=== PATIENT | female | born 1980 | race Caucasian/White ===

== ENCOUNTER 2016-11-20 00:49 | Observation (INO) | payer MEDICARE, MEDICAID ==
[~2016-11-20] VITALS: Ht 160 cm; Wt 143.0 kg
[~2016-11-20 00:49] MED LIST: CEFD300C3 PO; CITA20TA7 PO; EPIN0.3P2 IJ; LEVE500T6 PO; LISI10TA2 PO; MELO7.5T46 PO; NORG1TAB15 PO; PREG75CA PO; TRAM50TA2 PO; TRAZ100T92 PO; ZIPR20CA23 PO
--- OUTSIDE RECORDS SUMMARY | 2016-11-20 00:55 | XMS REPORT | Continuity of Care Document ---
Author Author [facility] Organization [facility] Address Unknown Phone Unavailable Care Team Providers Care Outside Sales Inspector Name Role Phone [facility] PCP Insurance Providers Payer Name Policy Number Subscriber Name Relationship s Medicare [id number] Bhavin Tucker 18 Self / Same As Patient [facility] [id number] Bhavin Tucker 18 Self / Same As Patient Advance Directives Directive Response Recorded Date/Time Advance Directives No 09/26/16 12:48am Resuscitation Status Full Code 09/26/16 12:48am Chief Complaint and Reason for Visit Chief Complaint -Female Reason for Visit Ovarian cyst [id number] Problems Active Problems Medical Problem Onset Date Status Ovarian cyst Unknown Acute Pelvic pain Unknown Acute UTI (urinary tract infection) Unknown Acute Medications Current Home Medications Medication Dose Units Route Directions Days/Qty Instructions Start Date Epinephrine 0.3 Mg/0.3 Ml 0.3 Mg Injection As Needed 09/26/16 Norgestimate-Ethinyl Estradiol 1 Each 1 Each Oral Daily 09/26/16 Lisinopril 10 Mg 10 Mg Oral Daily 09/26/16 Levetiracetam 500 Mg 500 Mg Oral Twice A Day 09/26/16 Ziprasidone Hcl 20 Mg 20 Mg Oral Daily 09/26/16 Meloxicam 7.5 Mg 7.5 Mg Oral Twice A Day 09/26/16 Citalopram Hydrobromide 20 Mg 20 Mg Oral Daily 09/26/16 Trazodone Hcl 100 Mg 300 Mg Oral Bedtime as needed for Insomnia Cefdinir (Omnicef) 300 Mg 300 Mg Oral Twice A Day 20 09/26/16 Tramadol Hcl 50 Mg 50-100 Mg Oral Every 6 Hours as needed for Pain 20 09/26/16 Social History Social History Problem Response Recorded Date/Time Alcohol Use Denies Use 09/26/2016 12:48am Recreational Drug Use No 09/26/2016 12:48am Recent Foreign Travel No 09/26/2016 12:19am Recent Infectious Disease Exposure No 09/26/2016 12:19am Smoking Status Former Smoker 09/26/2016 12:48am Recent Hopitalizations No 09/26/2016 12:48am Query Response Start Date Stop Date Smoking Status Former Smoker Hospital Discharge Instructions No hospital discharge instructions. Plan of Care Discharge Date 09/26/16 2:53am Disposition 01 HOME, SELF-CARE Condition at Discharge Stable Instructions/Education Provided Urinary Tract Infection, Adult (DC) Ovarian Cyst (DC) Prescriptions See Medication Section Referrals COURTNEY PERKINS - Primary Care Physician [facility] - Primary Care Physician Additional Instructions/Education All discharge instructions reviewed with patient and/or family. Voiced understanding. NEED TO SCHEDULE A FOLLOW UP APPOINTMENT WITH YOUR PCP UPON COMPLETION OF YOUR MEDICATIONS. WILL NEED A FOLLOW UP ULTRASOUND TO MAKE SURE YOUR OVARIAN CYST HAS RESOLVED. Functional Status No functional status results. Allergies, Adverse Reactions, Alerts Allergen Type Severity Reaction Status Last Updated Aspirin Adverse Reaction Unknown anaphylaxis Active 09/26/16 Immunizations No immunization records. Vital Signs Acute Vital Signs Vital Response Date/Time Temperature (Fahrenheit) 98.5 degrees F (97.6 - 99.5) 09/26/2016 12:19am Temperature (Calculated Celsius) 36.10580 degrees C (36.4 - 37.5) 09/26/2016 12:19am Temperature Source Tympanic 09/26/2016 12:19am Pulse Rate (adult) 76 bpm (60 - 90) 09/26/2016 12:19am Respiratory Rate 20 bpm (12 - 24) 09/26/2016 12:19am O2 Sat by Pulse Oximetry 98 % (88 - 100) 09/26/2016 12:19am Blood Pressure 180/92 mm Hg 09/26/2016 12:19am Blood Pressure Mean 121 mm Hg 09/26/2016 12:19am Pain Numeric Pain Scale 9 09/26/2016 2:38am Height (Feet) 5 feet 09/26/2016 12:19am Height (Inches) 3 inches 09/26/2016 12:19am Height (Calculated Centimeters) 160.280728 cm 09/26/2016 12:19am Weight (Pounds) 290 pounds 09/26/2016 12:19am Weight (Calculated Kilograms) 131.076820 kilograms 09/26/2016 12:19am Capillary Refill Capillary Refill Less Than 3 Seconds 09/26/2016 12:19am Height 5 ft 3 in Weight 290 lb Body Mass Index 51.4 kg/m^2 Results Laboratory Results Test Name Result Units Flags Reference Collection Date/Time Result Date/ Time Comments Urine Color RED * 09/26/2016 12:30am 09/26/2016 12:56am Urine Clarity SLIGHTLY CLOUDY 09/26/2016 12:30am 09/26/2016 12: 56am Urine pH 5 5-9 09/26/2016 12:30am 09/26/2016 12:56am Urine Specific [place] 1.025 * 1.016-1.022 09/26/2016 12:30am 2015 12:56am Urine Protein 3+ * NEGATIVE 09/26/2016 12:30am 09/26/2016 12:56am Urine Glucose (UA) NEGATIVE NEGATIVE 09/26/2016 12:30am 09/26/2016 12 :56am Urine RBC (Auto) 5+ * NEGATIVE 09/26/2016 12:30am 09/26/2016 12:56am Urine Ketones 1+ * NEGATIVE 09/26/2016 12:30am 09/26/2016 12:56am Urine Nitrite NEGATIVE NEGATIVE 09/26/2016 12:30am 09/26/2016 12: 56am Urine Bilirubin NEGATIVE NEGATIVE 09/26/2016 12:30am 09/26/2016 12: 56am Urine Urobilinogen 1 MG/DL NORMAL 09/26/2016 12:30am 09/26/2016 12: 56am Urine Leukocyte Esterase 2+ * NEGATIVE 09/26/2016 12:30am 09/26/2016 12 :56am Urine RBC TNTC /HPF * 09/26/2016 12:30am 09/26/2016 12:56am Urine WBC 5-10 /HPF * 09/26/2016 12:30am 09/26/2016 12:56am Urine Bacteria FEW /HPF * 09/26/2016 12:30am 09/26/2016 12:56am Urine Squamous Epithelial Cells 2-5 /HPF 09/26/2016 12:30am 2015 12:56am Urine Crystals NONE /LPF 09/26/2016 12:30am 09/26/2016 12:56am Urine Casts NONE /LPF 09/26/2016 12:30am 09/26/2016 12:56am Urine Mucus NEGATIVE /LPF 09/26/2016 12:30am 09/26/2016 12:56am Urine Culture Indicated YES 09/26/2016 12:30am 09/26/2016 12:56am Procedures No known history of procedures. Encounters Encounter Location Arrival/Admit Date Discharge/Depart Date Attending Provider Departed Emergency Room [facility] 09/26/16 12:15am 2:53am VALENTINA WILLSON DO Recent Diagnosis
[2016-11-20] MEDS ORDERED: NS IV 1000 ML 1,000 ML IV ONE (01:06)
--- NOTE | 2016-11-20 01:11 | ED Neurological Problem ---
General Chief Complaint: Neurological Problems Stated Complaint: SEIZURE Source: patient Exam Limitations: no limitations History of Present Illness Time seen by provider: 01:00 Initial Comments Here by EMS with report of 8 seizures at home per family member. She has not taken her night meds it tonight. Apparently suffering from some sort of upper respiratory infection. Patient is not answering questions currently. She is on Keppra. EMS witnessed a seizure in route and did give 5 mg of Valium IV. Patient postictal or somnolent on arrival here. Does occasionally moan. No report of trauma. Timing/Duration: 1 hour, episodic Severity: moderate Associated Symptoms: seizures Allergies and Home Medications Allergies Coded Allergies: aspirin (Unverified Adverse Reaction, Unknown, anaphylaxis, 09/26/16) Home Medications Citalopram Hydrobromide 20 Mg Tablet 20 MG PO DAILY (Reported) Epinephrine 0.3 Mg/0.3 Ml Auto.injct 0.3 MG IJ PRN (Reported) Levetiracetam 500 Mg Tablet 500 MG PO BID (Reported) Lisinopril 10 Mg Tablet 10 MG PO DAILY (Reported) Meloxicam 7.5 Mg Tablet 7.5 MG PO BID (Reported) Norgestimate-Ethinyl Estradiol 1 Each Tablet 1 EACH PO DAILY (Reported) Pregabalin 75 Mg Capsule 75 MG PO BID (Reported) Tramadol HCl 50 Mg Tablet #20 50-100 MG PO Q6H PRN PRN PAIN Prescribed by: VALENTINA WILLSON on 09/26/16 0238 Trazodone HCl 100 Mg Tablet 300 MG PO HS PRN PRN INSOMNIA (Reported) Ziprasidone HCl 20 Mg Capsule 20 MG PO DAILY (Reported) Constitutional: see HPINo chills, No fever Psychiatric/Neurological: See HPI Tonic Clonic Seizures Other Unable to complete review of systems due to altered mental status Past Skebioq-Zmvsxq-Uilwcl Hx Patient Social History Smoking Status: Unknown if Ever Smoked Recent Foreign Travel: No Contact w/Someone Who Travel: No Recent Hopitalizations: No Surgeries HX Surgeries: Yes ("rods in back") Surgeries: Orthopedic, Tubal Ligation Respiratory Hx Respiratory Disorders: No Cardiovascular Hx Cardiac Disorders: Yes Cardiac Disorders: Heart Murmur, Hypertension Neurological Hx Neurological Disorders: Yes Neurological Disorders: Seizure Disorder 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 Unable to obtain from patient due to altered mental status. Physical Exam Vital Signs Vital Sign - Last 12Hours 11/20/16 00:53 Temp 98.2 Pulse 93 Resp 18 B/P 147/96 Pulse Ox 100 O2 Delivery Room Air Capillary Refill : General Appearance: WD/WN no apparent distress HEENT: PERRL/EOMI pharynx normal Neck: full range of motion supple Respiratory: lungs clear normal breath sounds Cardiovascular: regular rate, rhythm no murmur Peripheral Pulses: 2+ Dorsalis Pedis (R), 2+ Left Dors-Pedis (L), 2+ Radial Pulses (R), 2+ Radial Pulses (L) Gastrointestinal: non tender soft Back: normal inspection no CVA tenderness Extremities: non-tender no pedal edema Neurologic/Psychiatric: disoriented x 3 other (moaning on exam. Otherwise unresponsive/postictal. O2 sat 95 percent on room air. Protecting airway well. ) Skin: normal color warm/dry Progress/Results/Core Measures Results/Orders Lab Results Laboratory Tests Test 11/20/16 01:02 Range/Units Alanine Aminotransferase (ALT/SGPT) 11 0-55 U/L Albumin 3.7 3.2-4.5 G/DL Alkaline Phosphatase 73 40-136 U/L Anion Gap 13 5-14 MMOL/L Aspartate Amino Transf (AST/SGOT) 9 5-34 U/L BUN/Creatinine Ratio 18 Basophils # (Auto) 0.0 0.0-0.1 10^3/uL Basophils (%) (Auto) 0 0-10 % Blood Urea Nitrogen 12 7-18 MG/DL Calcium Level 8.7 8.5-10.1 MG/DL Carbon Dioxide Level 19 L 21-32 MMOL/L Chloride Level 104 98-107 MMOL/L Creatinine 0.67 0.60-1.30 MG/DL Eosinophils # (Auto) 0.3 0.0-0.3 10^3/uL Eosinophils (%) (Auto) 4 0-10 % Estimat Glomerular Filtration Rate > 60 Glucose Level 114 H 70-105 MG/DL Hematocrit 35 35-52 % Hemoglobin 11.7 11.5-16.0 G/DL Lymphocytes # (Auto) 2.6 1.0-4.0 X 10^3 Lymphocytes (%) (Auto) 35 12-44 % Magnesium Level 1.8 1.8-2.4 MG/DL Mean Corpuscular Hemoglobin 27 25-34 PG Mean Corpuscular Hemoglobin Concent 33 32-36 G/DL Mean Corpuscular Volume 81 80-99 FL Mean Platelet Volume 9.6 7.4-10.4 FL Monocytes # (Auto) 0.7 0.0-1.0 X 10^3 Monocytes (%) (Auto) 10 0-12 % Neutrophils # (Auto) 3.8 1.8-7.8 X 10^3 Neutrophils (%) (Auto) 52 42-75 % Platelet Count 371 130-400 10^3/uL Potassium Level 3.8 3.6-5.0 MMOL/L Red Blood Count 4.32 L 4.35-5.85 10^6/uL Red Cell Distribution Width 13.9 10.0-14.5 % Serum Test, Qualitative NEGATIVE NEGATIVE Sodium Level 136 135-145 MMOL/L Total Bilirubin 0.1 0.1-1.0 MG/DL Total Protein 6.5 6.4-8.2 G/DL White Blood Count 7.4 4.3-11.0 10^3/uL My Orders Orders-GIRMA MAGALLON MD Cbc With Automated Diff (11/20/16 01:06) Comprehensive Metabolic Panel (11/20/16 01:06) Drug Screen Stat (Urine) (11/20/16 01:06) Hcg,Qualitative Serum (11/20/16 01:06) Magnesium (11/20/16 01:06) Ua Culture If Indicated (11/20/16 01:06) Ekg Tracing (11/20/16 01:06) Monitor-Rhythm Ecg Trace Only (11/20/16 01:06) Ns Iv 1000 Ml (Sodium Chloride 0.9%) (11/20/16 01:06) Levetiracetam Injection (Keppra Injectio (11/20/16 01:13) Saline Lock/Iv-Start (11/20/16 01:33) Medications Given in ED Current Medications Medications Dose Ordered Sig/Felicia Route Start Time Stop Time Status Last Admin Dose Admin Sodium Chloride 1,000 ml @ 0 mls/hr Q0M ONCE IV 11/20/16 01:06 11/20/16 01:09 DC 11/20/16 01:27 999 MLS/HR Vital Signs/I&O Vital Sign - Last 12Hours 11/20/16 00:53 Temp 98.2 Pulse 93 Resp 18 B/P 147/96 Pulse Ox 100 O2 Delivery Room Air Progress Note : Progress Note Seen and evaluated on arrival by EMS. Patient somnolent on arrival after administration of 5 mg of Ativan by EMS. Monitor patient. Patient's boyfriend came into the room and then a few minutes later patient had jerking movements of her body. This lasted about 10 seconds and then stopped. Patient reportedly did not have her Keppra tonight. Keppra 1000 mg loading dose given. Monitor patient. 0200: Patient will better now and is able to talk. Does admit that she may have not taken all of her seizure medicines. Keppra is currently infusing. Patient uncomfortable due to multiple seizures tonight. I did discuss the case with Dr. Tammy Stevenson. She accepts patient for admission , observation status. Patient agrees to plan and is appreciative of admission. ECG Initial ECG Impression Date: Nov 20, 2016 Initial ECG Impression Time: 01:04 Initial ECG Rate: 90 Initial ECG Rhythm: Normal Sinus Initial ECG Comparisson: Unchanged Comment Sinus rhythm with left atrial abnormality. No evidence of ST elevation ID. Similar to previous of 10/27/16. Interpreted by me. Departure Communication Time/Spoke to Admitting Phy: 02:00 Impression Impression: Primary Impression: Epileptic seizures Qualified Code: G40.901 - Epilepsy, unspecified, not intractable, with status epilepticus Disposition: ADMITTED INPATIENT Condition: Stable Decision to Admit Reason: Admit from ER (General) Decision to Admit/Date: Nov 20, 2016 Time/Decision to Admit Time: 02:00 Departure-Patient Inst. Referrals: [facility] (PCP/Family) Primary Care Physician GIRMA MAGALLON MD Nov 20, 2016 01:11
[2016-11-20 01:12] LABS: BASOPHILS % (AUTO) 0 % (0-10); EOSINOPHILS # (AUTO) 0.3 10^3/uL (0.0-0.3); EOSINOPHILS % (AUTO) 4 % (0-10); LYMPHOCYTES # (AUTO) 2.6 X 10^3 (1.0-4.0); LYMPHOCYTES % (AUTO) 35 % (12-44); MEAN CORPUSCULAR HEMOGLOBIN 27 PG (25-34); MEAN CORPUSCULAR HGB CONC 33 G/DL (32-36); MEAN CORPUSCULAR VOLUME 81 FL (80-99); MEAN PLATELET VOLUME 9.6 FL (7.4-10.4); MONOCYTES # (AUTO) 0.7 X 10^3 (0.0-1.0); MONOCYTES % (AUTO) 10 % (0-12); NEUTROPHILS # (AUTO) 3.8 X 10^3 (1.8-7.8); NEUTROPHILS % (AUTO) 52 % (42-75); PLATELET COUNT 371 10^3/uL (130-400); RED BLOOD COUNT 4.32 10^6/uL (4.35-5.85); RED CELL DISTRIBUTION WIDTH 13.9 % (10.0-14.5); WHITE BLOOD COUNT 7.4 10^3/uL (4.3-11.0)
[2016-11-20] MEDS ORDERED: LEVETIRACETAM INJECTION 1,000 MG in NORMAL SALINE (BAXTER MINI) 100 ML IV STA (01:13)
[2016-11-20 01:28] LABS: ALANINE AMINOTRANSFERASE 11 U/L (0-55); ALBUMIN 3.7 G/DL (3.2-4.5); ANION GAP 13 MMOL/L (5-14); ASPARTATE AMINO TRANSFERASE 9 U/L (5-34); BILIRUBIN,TOTAL 0.1 MG/DL (0.1-1.0); BLOOD UREA NITROGEN 12 MG/DL (7-18); BUN/CREATININE RATIO 18; CALCIUM 8.7 MG/DL (8.5-10.1); CARBON DIOXIDE 19 MMOL/L (21-32); CHLORIDE 104 MMOL/L (98-107); CREATININE SERUM 0.67 MG/DL (0.60-1.30); GFR ESTIMATED > 60; GLUCOSE 114 MG/DL (70-105); MAGNESIUM 1.8 MG/DL (1.8-2.4); POTASSIUM 3.8 MMOL/L (3.6-5.0); SODIUM 136 MMOL/L (135-145); TOTAL PROTEIN 6.5 G/DL (6.4-8.2)
[2016-11-20 03:00] VITALS: BP 154/85
[2016-11-20] MEDS ORDERED: NS IV 1000 ML 1,000 ML ONE (03:18)
[2016-11-20] MEDS ORDERED: IBUPROFEN 800 MG (MOTRIN) TAB PO ONE (03:18)
[2016-11-20] MEDS ORDERED: IBUPROFEN 800 MG (MOTRIN) TAB PO PRN (03:30)
[2016-11-20] MEDS ORDERED: LORazepam INJ 2 MG/ML (ATIVAN) VIAL IV PRN (03:30)
[2016-11-20] MEDS ORDERED: CATHETER FLUSH 10 ML SYR IV PRN (03:30)
[2016-11-20] MEDS: NS IV 1000 ML 1,000 ML IV SCH ×2 (03:54→11:30)
[2016-11-20 04:00] VITALS: BP 135/65
[2016-11-20] MEDS ORDERED: CATHETER FLUSH 10 ML SYR IV SCH (06:00)
[2016-11-20 08:00] VITALS: BP 148/83
[2016-11-20] MEDS ORDERED: ZIPR20CA26 PO (08:00)
[2016-11-20] MEDS ORDERED: TRAM50TA2 PO (08:00)
[2016-11-20] MEDS ORDERED: ONDA4TAB11 PO (08:00)
[2016-11-20] MEDS ORDERED: FLU TRIvalent (5 YOA+) 2016-17 (AFLURIA) 0.5 ML IM ONE (08:45)
[2016-11-20] MEDS ORDERED: LEVETIRACETAM 500 MG (KEPPRA) TAB PO SCH (09:00)
--- NOTE | 2016-11-20 11:18 | Discharge Instructions ---
Discharge [facility] Discharge Medications New, Converted or Re-Newed RX: Other Continued Medications: Citalopram Hydrobromide (Citalopram HBr) 20 Mg Tablet 20 MG PO DAILY TAB Epinephrine (Epipen) 0.3 Mg/0.3 Ml Auto.injct 0.3 MG IJ UD PRN ALLERGIC REACTION EA Levetiracetam (Levetiracetam) 500 Mg Tablet 500 MG PO BID TAB Lisinopril (Lisinopril) 10 Mg Tablet 10 MG PO HS TAB Meloxicam (Meloxicam) 7.5 Mg Tablet 7.5 MG PO BID TAB Norgestimate-Ethinyl Estradiol (Tri-Sprintec Tablet) 1 Each Tablet 1 TAB PO DAILY TAB Ondansetron (Ondansetron Odt) 4 Mg Tab.rapdis 4 MG PO TID PRN NAUSEA TAB Tramadol HCl (Tramadol HCl) 50 Mg Tablet 50-100 MG PO Q6H PRN PAIN TAB Trazodone HCl (Trazodone HCl) 100 Mg Tablet 300 MG PO HS TAKES 3 (100MG) TABLETS PRN INSOMNIA TAB Ziprasidone HCl (Ziprasidone HCl) 20 Mg Capsule 20 MG PO HS CAP Patient Instructions Goal/Follow Up Appt: Mae Childers APRN Nov 24 at 4:20 (as previously scheduled) Patient Instructions: Please take all medications as prescribed. Call the clinic if you need refills. [facility] to [facility] For: increased seizures. Activity & Diet Discharge Diet: ADA Diet Activity as Tolerated: Yes Orders-Post D/C & Referrals Pneu Vac Indicated: Yes Copy Copies To 1: MELANIE VITAL APRN, MD Nov 20, 2016 11:18 am
--- NOTE | 2016-11-20 11:20 | Short Stay Summary ---
HPI History of Present Illness: Bhavin presented to clinic last night with complaints of increasing seizures. Admits that she has not been taking her medication as prescribed. States she just forgets. DOesn't have seziures when she takes her meds. Usually sees Mae. No trauma. Had a recent URI but no fevers. No injury when she had the seizures. Source: patient Exam Limitations: no limitations Date seen by provider: Nov 20, 2016 Attending Physician Melanie Stevenson MD [place]CP [facility] Date of Admission Nov 20, 2016 at 2:00 am Home Medications Home Medications Reviewed patient Home Medication Reconciliation Form Allergies Coded Allergies: aspirin (Unverified Adverse Reaction, Unknown, anaphylaxis, 09/26/16) WEP-Bvliyr-Qkgmso Hx Patient Social History Alcohol Use: Denies Use Recreational Drug Use: No Smoking Status: Former Smoker Type Used: Cigarettes Recent Foreign Travel: No Contact w/other who traveled: No Recent Hopitalizations: No Recent Infectious Disease Expo: No Physical Abuse Screen: No Sexual Abuse: No Review of Systems ([facility]) Constitutional: no symptoms reported All Other Systems Reviewed Negative Unless Noted: Yes (Negative excepted noted.) Physical Exam-([facility]) Physical Exam Vital Signs VS - Last 72 Hours, by Label 11/20/16 11/20/16 11/20/16 11/20/16 00:53 02:51 03:00 03:32 Temp 98.2 98.2 98.3 Pulse 93 83 87 90 Resp 18 18 18 B/P 147/96 154/85 Pulse Ox 100 100 98 O2 Delivery Room Air Room Air 11/20/16 11/20/16 11/20/16 11/20/16 04:00 07:00 08:00 08:17 Temp 98.4 98.8 Pulse 79 78 79 Resp 18 19 B/P 135/65 148/83 Pulse Ox 97 95 96 O2 Delivery Room Air Room Air Room Air Capillary Refill : Less Than 3 Seconds General Appearance: WD/WN no apparent distress obese HEENT: PERRL/EOMI normal ENT inspection pharynx normal Neck: non-tender full range of motion supple normal inspection Respiratory: lungs clear normal breath sounds no respiratory distress no accessory muscle use Cardiovascular: regular rate, rhythm no edema no gallop no JVD Gastrointestinal: normal bowel sounds non tender soft Extremities: normal range of motion non-tender normal inspection no pedal edema no calf tenderness normal capillary refill Neurologic/Psychiatric: branch mechanic II-XII nml as tested no motor/sensory deficits alert normal mood/affect oriented x 3 Skin: normal color warm/dry Short Stay Diagnosis Discharge Diagnosis-Short Stay Admission Diagnosis SEIZURE DISORDER NONCOMPLIANCE WITH MEDICATION REGIMEN Final Discharge Diagnosis same Conclusion Plan Bhavin's seizure improved once she received the Keppra IV. SHe was requesting discharge when I went to her room the following morning.We had a very stephane discussion regarding her nonadherence. She did tell me she had pillsa t home and could follow up with Mae as arranged. I do not believe a nueurology referral is indicated at present as she needs to take her prescriptions,a nd then we cadn decide from there what needs to happen. Clinical Quality Measures DVT/VTE Risk/Contraindication: Risk Factor Score Per Nursin RFS Level Per Nursing on Admit: 3=High Copy Copies To 1: MELANIE VITAL APRN, MD Nov 20, 2016 11:20
[2016-11-20 13:10] VITALS: BP 148/83
== END 2016-11-20 11:06 | disposition home or self-care (01) ==
LOC: EDUNIT# 00:49 → ER 00:51 → UNDOADMOB 02:00 → 4TH 02:00 → UNDODISOB 11:06
PROVIDERS: ADMIT Pediatrics; ATTEND Pediatrics
DX: G40.901 Epilepsy, unspecified, not intractable, with status epilepticus (principal)
CPT/HCPCS: 36415; 80053; 82962; 83735; 84703; 85025; 93005; 93041; 96361; 96365; G0378

== ENCOUNTER 2016-11-26 00:57 | Emergency (ER) | payer MEDICARE, MEDICAID ==
[~2016-11-26] VITALS: Ht 160 cm; Wt 154.3 kg
[~2016-11-26 00:57] MED LIST changes: +ONDA4TAB11 PO; +ZIPR20CA26 PO
--- OUTSIDE RECORDS SUMMARY | 2016-11-26 01:02 | XMS REPORT | Continuity of Care Document ---
Author Author [facility] Organization [facility] Address Unknown Phone Unavailable Care Team Providers Care Furniture Repair Technician Name Role Phone [facility] PCP Insurance Providers Payer Name Policy Number Subscriber Name Relationship s Medicare [id number] Bhavin Tucker 18 Self / Same As Patient [facility] [id number] Bhavin Tucker 18 Self / Same As Patient Advance Directives Directive Response Recorded Date/Time Advance Directives No 09/26/16 12:48am Resuscitation Status Full Code 09/26/16 12:48am Chief Complaint and Reason for Visit Chief Complaint -Female Reason for Visit Ovarian cyst [id number] Problems Active Problems Medical Problem Onset Date [...] Referrals COURTNEY PERKINS - Primary Care Physician [facility] - Primary Care Physician Additional Instructions/Education [...] - 99.5) 09/26/2016 12:19am Temperature (Calculated Celsius) 36.90857 degrees C (36.4 - 37.5) 09/26/2016 12:19am [...] 3 inches 09/26/2016 12:19am Height (Calculated Centimeters) 160.213971 cm 09/26/2016 12:19am Weight (Pounds) 290 pounds 09/26/2016 12:19am Weight (Calculated Kilograms) 131.555360 kilograms 09/26/2016 12:19am Capillary Refill Capillary Refill [...] 5-9 09/26/2016 12:30am 09/26/2016 12:56am Urine Specific [place] 1.025 * 1.016-1.022 09/26/2016 12:30am 2015 12:56am [...] Date Attending Provider Departed Emergency Room [facility] 09/26/16 12:15am 2:53am VALENTINA WILLSON DO Recent Diagnosis
[2016-11-26 01:25] LABS: BASOPHILS % (AUTO) 0 % (0-10); EOSINOPHILS # (AUTO) 0.3 10^3/uL (0.0-0.3); EOSINOPHILS % (AUTO) 3 % (0-10); LYMPHOCYTES # (AUTO) 3.1 X 10^3 (1.0-4.0); LYMPHOCYTES % (AUTO) 31 % (12-44); MEAN CORPUSCULAR HEMOGLOBIN 27 PG (25-34); MEAN CORPUSCULAR HGB CONC 34 G/DL (32-36); MEAN CORPUSCULAR VOLUME 80 FL (80-99); MEAN PLATELET VOLUME 9.6 FL (7.4-10.4); MONOCYTES # (AUTO) 0.8 X 10^3 (0.0-1.0); MONOCYTES % (AUTO) 8 % (0-12); NEUTROPHILS # (AUTO) 5.8 X 10^3 (1.8-7.8); NEUTROPHILS % (AUTO) 58 % (42-75); PLATELET COUNT 417 10^3/uL (130-400); RED BLOOD COUNT 4.29 10^6/uL (4.35-5.85); RED CELL DISTRIBUTION WIDTH 13.7 % (10.0-14.5)
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
[2016-11-26 01:42] LABS: ALANINE AMINOTRANSFERASE 11 U/L (0-55); ALBUMIN 3.7 G/DL (3.2-4.5); ANION GAP 11 MMOL/L (5-14); ASPARTATE AMINO TRANSFERASE 8 U/L (5-34); BILIRUBIN,TOTAL 0.2 MG/DL (0.1-1.0); BLOOD UREA NITROGEN 10 MG/DL (7-18); BUN/CREATININE RATIO 16; CALCIUM 8.6 MG/DL (8.5-10.1); CARBON DIOXIDE 20 MMOL/L (21-32); CHLORIDE 105 MMOL/L (98-107); CREATINE KINASE 33 U/L (29-168); CREATININE SERUM 0.64 MG/DL (0.60-1.30); GFR ESTIMATED > 60; GLUCOSE 132 MG/DL (70-105); MAGNESIUM 1.9 MG/DL (1.8-2.4); POTASSIUM 3.9 MMOL/L (3.6-5.0); SODIUM 136 MMOL/L (135-145); TOTAL PROTEIN 6.6 G/DL (6.4-8.2)
[2016-11-26 01:43] LABS: BILIRUBIN,URINE NEGATIVE (NEGATIVE); KETONES,URINE NEGATIVE (NEGATIVE); LEUKOCYTE ESTERASE ,URINE 2+ (NEGATIVE); NITRITE,URINE NEGATIVE (NEGATIVE); PH,URINE 5 (5-9); PROTEIN,URINE NEGATIVE (NEGATIVE); UROBILINOGEN,URINE NORMAL (NORMAL)
[2016-11-26 02:11] LABS: ALCOHOL < 10 MG/DL (<10)
[2016-11-26] MEDS ORDERED: NITR-65 PO (02:13)
[2016-11-26 02:19] VITALS: BP 148/98
== END 2016-11-26 02:18 | disposition home or self-care (01) ==
LOC: EDUNIT# 00:57 → ER 00:58
DX: G40.909 Epilepsy, unspecified, not intractable, without status epilepticus (principal); N39.0 Urinary tract infection, site not specified; I10 Essential (primary) hypertension; Z79.899 Other long term (current) drug therapy
CPT/HCPCS: 36415; 80053; 80306; 80320; 81000; 82550; 83735; 84703; 85025; 87088; 87186; 99283

== ENCOUNTER 2016-12-03 02:07 | Emergency (ER) | payer MEDICARE, MEDICAID ==
[~2016-12-03] VITALS: Ht 160 cm; Wt 154.3 kg
[~2016-12-03 02:07] MED LIST changes: +NITR-65 PO
--- OUTSIDE RECORDS SUMMARY | 2016-12-03 02:15 | XMS REPORT | Continuity of Care Document ---
Author Author [facility] Organization 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 PCP Insurance Providers Payer Name Policy Number Subscriber Name Relationship s Medicare [id number] Bhavin Tucker 18 Self / Same As Patient [facility] [id number] Bhavin Tucker 18 Self / Same As Patient Advance Directives Directive Response Recorded Date/Time Advance Directives No 09/26/16 12:48am Resuscitation Status Full Code 09/26/16 12:48am Chief Complaint and Reason for Visit Chief Complaint -Female Reason for Visit Ovarian cyst [id number] Problems Active Problems Medical Problem Onset Date [...] Referrals COURTNEY PERKINS - Primary Care Physician [facility] - Primary Care Physician Additional Instructions/Education [...] - 99.5) 09/26/2016 12:19am Temperature (Calculated Celsius) 36.41628 degrees C (36.4 - 37.5) 09/26/2016 12:19am [...] 3 inches 09/26/2016 12:19am Height (Calculated Centimeters) 160.661360 cm 09/26/2016 12:19am Weight (Pounds) 290 pounds 09/26/2016 12:19am Weight (Calculated Kilograms) 131.955012 kilograms 09/26/2016 12:19am Capillary Refill Capillary Refill [...] 5-9 09/26/2016 12:30am 09/26/2016 12:56am Urine Specific [place] 1.025 * 1.016-1.022 09/26/2016 12:30am 2015 12:56am [...]
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
[2016-12-03 04:54] VITALS: BP 142/94
== END 2016-12-03 04:54 | disposition home or self-care (01) ==
LOC: EDUNIT# 02:07 → ER 02:10
DX: S29.002A Unspecified injury of muscle and tendon of back wall of thorax, initial encounter (principal); I10 Essential (primary) hypertension; G40.909 Epilepsy, unspecified, not intractable, without status epilepticus; E66.01 Morbid (severe) obesity due to excess calories; Z79.899 Other long term (current) drug therapy; W01.0XXA Fall on same level from slipping, tripping and stumbling without subsequent striking against object, initial encounter; Y92.014 Private driveway to single-family (private) house as the place of occurrence of the external cause; Y99.8 Other external cause status
CPT/HCPCS: 99282

== ENCOUNTER → 2016-12-05 | Outpatient (CLI) | payer MEDICARE, MEDICAID ==
[~2016-12-05] MED LIST changes: +LEVE10006 PO
--- OUTSIDE RECORDS SUMMARY | 2016-12-05 11:07 | XMS REPORT | Continuity of Care Document ---
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 Role Phone [facility] PCP Insurance Providers Payer Name Policy Number Subscriber Name Relationship s Medicare [id number] Bhavin Tucker 18 Self / Same As Patient [facility] [id number] Bhavin Tucker 18 Self / Same As Patient Advance Directives Directive Response Recorded Date/Time Advance Directives No 09/26/16 12:48am Resuscitation Status Full Code 09/26/16 12:48am Chief Complaint and Reason for Visit Chief Complaint -Female Reason for Visit Ovarian cyst [id number] Problems Active Problems Medical Problem Onset Date [...] Referrals COURTNEY PERKINS - Primary Care Physician [facility] - Primary Care Physician Additional Instructions/Education [...] - 99.5) 09/26/2016 12:19am Temperature (Calculated Celsius) 36.44096 degrees C (36.4 - 37.5) 09/26/2016 12:19am [...] 3 inches 09/26/2016 12:19am Height (Calculated Centimeters) 160.617998 cm 09/26/2016 12:19am Weight (Pounds) 290 pounds 09/26/2016 12:19am Weight (Calculated Kilograms) 131.297532 kilograms 09/26/2016 12:19am Capillary Refill Capillary Refill [...] 5-9 09/26/2016 12:30am 09/26/2016 12:56am Urine Specific [place] 1.025 * 1.016-1.022 09/26/2016 12:30am 2015 12:56am [...] Date Attending Provider Departed Emergency Room [facility] 09/26/16 12:15am 2:53am VALENTINA WILLSON DO Recent Diagnosis
--- NOTE | 2016-12-05 12:52 | Diagnostic Imaging Report ---
PROCEDURE: MR imaging of the brain without contrast. TECHNIQUE: Multiplanar, multisequence MR imaging of the brain was performed without contrast. INDICATION: Seizure disorder with frequent falls and lower extremity paresthesia. FINDINGS: Ventricles and sulci are within normal limits for size. There is no evidence of cortical thickening or dysplasia. There is no evidence of amezquita matter heterotopia. No abnormal mass effect or shift of midline structures is identified. There is no restricted diffusion. Temporal lobes in general and hippocampal formations, specifically are symmetric, bilaterally without evidence of abnormal signal. No hemorrhage is detected. There are mildly prominent deep cervical lymph nodes, bilaterally which are symmetric. IMPRESSION: Unremarkable MRI of the brain. Dictated by: Dictated on workstation # [id number]
== END ==
LOC: RAD 11:02
PROVIDERS: ATTEND Nurse Practitioner Community Health
DX: R20.8 Other disturbances of skin sensation (principal); R53.1 Weakness; R29.6 Repeated falls; G40.909 Epilepsy, unspecified, not intractable, without status epilepticus; Z87.820 Personal history of traumatic brain injury
CPT/HCPCS: 70551

== ENCOUNTER → 2017-02-06 | Outpatient (CLI) | payer MEDICARE, MEDICAID ==
--- NOTE | 2017-02-06 17:04 | Diagnostic Imaging Report ---
PROCEDURE: MRI right joint upper extremity without contrast. TECHNIQUE: Multiplanar, multisequence MR imaging of the right shoulder was performed without contrast. COMPARISON: None available. INDICATION: Right shoulder pain for 9 months. FINDINGS: Rotator cuff: No high-grade partial or full-thickness rotator cuff tear. Low-grade partial-thickness bursal-sided fraying of the anterior insertional fibers of the supraspinatus, with underlying tendinopathy. No rotator cuff muscle atrophy. Glenoid labrum: By non-arthrogram imaging, the glenoid labrum is normal. Long head of biceps: The long head of the biceps is normal in morphology and position. No tear or significant tendinopathy. Bones and cartilage: No fracture or Hill-Sachs deformity of the humeral head. No high-grade chondromalacia in the glenohumeral joint. Mild degenerative capsular hypertrophy of the acromioclavicular joint without associated synovitis. Soft tissues: No glenohumeral joint effusion. No MRI findings to suggest adhesive capsulitis. Trace fluid distends the subacromial and subdeltoid bursa, indicative of bursitis. IMPRESSION: 1. Low-grade partial-thickness tearing of the bursal fibers of the anteriormost insertional fibers of the supraspinatus. 2. There is associated mild subacromial/subdeltoid bursitis. Dictated by: Dictated on workstation # [id number]
== END ==
LOC: RAD 16:08
PROVIDERS: ATTEND Family Medicine
DX: M75.101 Unspecified rotator cuff tear or rupture of right shoulder, not specified as traumatic (principal)
CPT/HCPCS: 73221

== ENCOUNTER 2017-02-12 13:06 | Outpatient (RCR) | payer MEDICARE, MEDICAID ==
--- OUTSIDE RECORDS SUMMARY | 2017-01-13 14:22 | XMS REPORT | Continuity of Care Document ---
Author Author [facility] Organization [facility] Address Unknown Phone Unavailable Care Team Providers Care Technical Service Engineer Name Role Phone [facility] PCP Insurance Providers Payer Name Policy Number Subscriber Name Relationship s Medicare [id number] Bhavin Tucker 18 Self / Same As Patient [facility] [id number] Bhavin Tucker 18 Self / Same As Patient Advance Directives Directive Response Recorded Date/Time Advance Directives No 09/26/16 12:48am Resuscitation Status Full Code 09/26/16 12:48am Chief Complaint and Reason for Visit Chief Complaint -Female Reason for Visit Ovarian cyst [id number] Problems Active Problems Medical Problem Onset Date [...] Referrals COURTNEY PERKINS - Primary Care Physician [facility] - Primary Care Physician Additional Instructions/Education [...] - 99.5) 09/26/2016 12:19am Temperature (Calculated Celsius) 36.92864 degrees C (36.4 - 37.5) 09/26/2016 12:19am [...] 3 inches 09/26/2016 12:19am Height (Calculated Centimeters) 160.469078 cm 09/26/2016 12:19am Weight (Pounds) 290 pounds 09/26/2016 12:19am Weight (Calculated Kilograms) 131.672002 kilograms 09/26/2016 12:19am Capillary Refill Capillary Refill [...] 5-9 09/26/2016 12:30am 09/26/2016 12:56am Urine Specific [place] 1.025 * 1.016-1.022 09/26/2016 12:30am 2015 12:56am [...] Date Attending Provider Departed Emergency Room [facility] 09/26/16 12:15am 2:53am VALENTINA WILLSON DO Recent Diagnosis
[~2017-02-12 13:06] MED LIST changes: -LEVE10006 PO
== END 2017-02-12 13:37 | disposition home or self-care (01) ==
PROVIDERS: ATTEND Nurse Practitioner Community Health
DX: R53.1 Weakness (principal)

== ENCOUNTER 2017-02-26 14:04 | Outpatient (CLI) | payer MEDICARE, MEDICAID ==
[~2017-02-26] VITALS: Ht 160 cm; Wt 138.8 kg
[2017-02-26 14:13] VITALS: BP 124/79
[2017-02-26] MEDS ORDERED: LEVE10006 PO (14:20)
== END 2017-02-26 14:27 | disposition home or self-care (01) ==
LOC: PREOP 14:04
PROVIDERS: ATTEND Orthopaedic Surgery
DX: Z01.818 Encounter for other preprocedural examination (principal); Z11.2 Encounter for screening for other bacterial diseases; G56.01 Carpal tunnel syndrome, right upper limb
CPT/HCPCS: 87081

== ENCOUNTER → 2017-04-30 | Outpatient (CLI) | payer MEDICARE, MEDICAID ==
[~2017-04-30] MED LIST changes: +LEVE10006 PO
== END ==
DX: R10.2 Pelvic and perineal pain (principal); N92.0 Excessive and frequent menstruation with regular cycle

== ENCOUNTER 2017-05-15 05:53 | Emergency (ER) | payer MEDICARE, MEDICAID ==
[~2017-05-15] VITALS: Ht 160 cm; Wt 129.3 kg
[2017-05-15] MEDS ORDERED: TOPI100T PO (06:07)
[2017-05-15] MEDS ORDERED: ZIPR20CA23 PO (06:07)
[2017-05-15] MEDS ORDERED: diphenhydrAMINE 50 MG/ML INJ (BENADRYL) IM ONE (07:00)
[2017-05-15] MEDS ORDERED: methylPREDNISolone 125 MG (Solu-MEDROL) VIAL IM ONE (07:00)
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
[2017-05-15 07:16] VITALS: BP 139/91
== END 2017-05-15 07:13 | disposition home or self-care (01) ==
LOC: EDUNIT# 05:53 → ER 05:56
DX: L29.8 Other pruritus (principal); I10 Essential (primary) hypertension; G40.909 Epilepsy, unspecified, not intractable, without status epilepticus; K21.9 Gastro-esophageal reflux disease without esophagitis; M19.90 Unspecified osteoarthritis, unspecified site; E66.01 Morbid (severe) obesity due to excess calories; F31.9 Bipolar disorder, unspecified; F20.9 Schizophrenia, unspecified; F43.10 Post-traumatic stress disorder, unspecified; F90.9 Attention-deficit hyperactivity disorder, unspecified type; J45.909 Unspecified asthma, uncomplicated; F17.210 Nicotine dependence, cigarettes, uncomplicated; Z68.43 Body mass index [BMI] 50.0-59.9, adult
CPT/HCPCS: 96372; 99284

== ENCOUNTER 2017-05-17 16:31 | Emergency (ER) | payer MEDICARE, MEDICAID ==
[~2017-05-17] VITALS: Ht 160 cm; Wt 129.3 kg
[~2017-05-17 16:31] MED LIST changes: +TOPI100T PO; +ZIPR20CA24 PO; -ZIPR20CA26 PO
[2017-05-17] MEDS ORDERED: FAMOTIDINE 20MG/2ML IV (PEPCID) IV STA (17:53)
[2017-05-17] MEDS ORDERED: methylPREDNISolone 125 MG (Solu-MEDROL) VIAL IV STA (17:53)
[2017-05-17] MEDS ORDERED: NS IV 1000 ML 1,000 ML IV ONE (17:53)
[2017-05-17] MEDS ORDERED: diphenhydrAMINE 50 MG/ML INJ (BENADRYL) IV STA (17:53)
[2017-05-17] MEDS ORDERED: ONDANSETRON 4 MG/2 ML (SDV) Z0FRAN IVP ONE (18:00)
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
[2017-05-17] MEDS ORDERED: CLINDAMYCIN INJECTION 900 MG in NS (IVPB) 50 ML IV ONE (19:15)
[2017-05-17] MEDS ORDERED: DOXY100C2 PO (20:09)
[2017-05-17] MEDS ORDERED: SULF1TAB35 PO (20:09)
[2017-05-17] MEDS ORDERED: FAMO-119 PO (20:10)
[2017-05-17] MEDS ORDERED: PRD20T PO (20:10)
[2017-05-17] MEDS ORDERED: predniSONE 20 MG TAB PO ONE (20:30)
[2017-05-17 21:15] VITALS: BP 126/75
== END 2017-05-17 21:15 | disposition home or self-care (01) ==
LOC: EDUNIT# 16:31 → ER 16:32
DX: Z98.51 Tubal ligation status; F31.9 Bipolar disorder, unspecified; M19.90 Unspecified osteoarthritis, unspecified site; G40.909 Epilepsy, unspecified, not intractable, without status epilepticus; F20.9 Schizophrenia, unspecified; Z68.43 Body mass index [BMI] 50.0-59.9, adult; J45.909 Unspecified asthma, uncomplicated; F90.9 Attention-deficit hyperactivity disorder, unspecified type; F17.210 Nicotine dependence, cigarettes, uncomplicated; E66.01 Morbid (severe) obesity due to excess calories; K21.9 Gastro-esophageal reflux disease without esophagitis; I10 Essential (primary) hypertension; K52.9 Noninfective gastroenteritis and colitis, unspecified; T78.3XXA Angioneurotic edema, initial encounter
CPT/HCPCS: 96361; 96365; 96375

== ENCOUNTER → 2017-07-17 | Outpatient (CLI) | payer MEDICARE, MEDICAID ==
[~2017-07-17] MED LIST changes: +CITA20TA12 PO; +DOXY100C2 PO; +FAMO-119 PO; +PRD20T PO; +SULF1TAB35 PO; +TOPI200T25 PO
== END ==
LOC: RT 09:28
PROVIDERS: ATTEND Psychiatry & Neurology Neurology
DX: R56.9 Unspecified convulsions (principal)
CPT/HCPCS: 95816

== ENCOUNTER 2017-08-01 17:07 | Emergency (ER) | payer MEDICARE, MEDICAID ==
[~2017-08-01] VITALS: Ht 160 cm; Wt 127.0 kg
[~2017-08-01 17:07] MED LIST changes: -CITA20TA12 PO; -TOPI200T25 PO
[2017-08-01] MEDS ORDERED: TOPI200T25 PO (19:40)
[2017-08-01] MEDS ORDERED: CITA20TA12 PO (19:40)
--- NOTE | 2017-08-01 20:21 | Diagnostic Imaging Report ---
EXAMINATION: Left knee, 3 views. COMPARISON: None. HISTORY: 37-year-old female, left knee pain getting worse over the past few days. FINDINGS: There is no identified knee joint effusion. There is moderate to severe patellofemoral compartment joint space loss with small patellofemoral compartment osteophytes. The medial and lateral compartments are not significantly narrowed. There are small medial compartment osteophytes. There is no identified acute fracture. There is degenerative type enthesopathy at the insertion of the distal quadriceps tendon and origin and insertion of the patellar tendon. IMPRESSION: 1. No identified acute bony abnormality of the left knee. 2. Moderate to severe patellofemoral and mild medial compartment osteoarthritis. No knee joint effusion. Dictated by: Dictated on workstation # [id number]
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
[2017-08-01] MEDS ORDERED: PRD20T PO (20:47)
[2017-08-01] MEDS: RX-TRAMADOL 50 MG (ULTRAM) TAB PPK#4 PO STA ×2 (21:11→21:14)
[2017-08-01 21:31] VITALS: BP 166/96
== END 2017-08-01 21:31 | disposition home or self-care (01) ==
LOC: EDUNIT# 17:07 → ER 17:10
DX: M17.12 Unilateral primary osteoarthritis, left knee (principal); J45.909 Unspecified asthma, uncomplicated; I10 Essential (primary) hypertension; G40.909 Epilepsy, unspecified, not intractable, without status epilepticus; K21.9 Gastro-esophageal reflux disease without esophagitis; F90.9 Attention-deficit hyperactivity disorder, unspecified type; F43.10 Post-traumatic stress disorder, unspecified; F31.9 Bipolar disorder, unspecified; F20.9 Schizophrenia, unspecified; F42.9 Obsessive-compulsive disorder, unspecified; Z87.19 Personal history of other diseases of the digestive system; Z87.448 Personal history of other diseases of urinary system; Z87.891 Personal history of nicotine dependence; Z98.51 Tubal ligation status
CPT/HCPCS: 73562; 99283

== ENCOUNTER → 2017-10-09 | Outpatient (CLI) | payer MEDICARE, MEDICAID ==
[~2017-10-09] MED LIST changes: +CITA20TA12 PO; +TOPI200T25 PO
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
== END ==
LOC: RAD 10:34
PROVIDERS: ATTEND Orthopaedic Surgery
DX: M75.111 Incomplete rotator cuff tear or rupture of right shoulder, not specified as traumatic (principal); M89.311 Hypertrophy of bone, right shoulder; M25.711 Osteophyte, right shoulder
CPT/HCPCS: 73221

== ENCOUNTER 2017-10-10 18:28 | Emergency (ER) | payer MEDICARE, MEDICAID ==
[~2017-10-10] VITALS: Ht 160 cm; Wt 127.0 kg
[2017-10-10 20:18] LABS: BILIRUBIN,URINE NEGATIVE (NEGATIVE); KETONES,URINE NEGATIVE (NEGATIVE); LEUKOCYTE ESTERASE ,URINE 1+ (NEGATIVE); NITRITE,URINE NEGATIVE (NEGATIVE); PH,URINE 6 (5-9); PROTEIN,URINE NEGATIVE (NEGATIVE); UROBILINOGEN,URINE NORMAL (NORMAL)
[2017-10-10 20:24] LABS: WBC,URINE RARE /HPF
[2017-10-10] MEDS ORDERED: ONDANSETRON 4 MG (ZOFRAN) ORAL DISSOLVE TAB SL STA (21:20)
[2017-10-10 21:55] LABS: BASOPHILS % (AUTO) 0 % (0-10); EOSINOPHILS # (AUTO) 0.1 10^3/uL (0.0-0.3); EOSINOPHILS % (AUTO) 1 % (0-10); LYMPHOCYTES # (AUTO) 3.1 X 10^3 (1.0-4.0); LYMPHOCYTES % (AUTO) 30 % (12-44); MEAN CORPUSCULAR HEMOGLOBIN 28 PG (25-34); MEAN CORPUSCULAR HGB CONC 34 G/DL (32-36); MEAN CORPUSCULAR VOLUME 82 FL (80-99); MEAN PLATELET VOLUME 10.2 FL (7.4-10.4); MONOCYTES # (AUTO) 0.9 X 10^3 (0.0-1.0); MONOCYTES % (AUTO) 8 % (0-12); NEUTROPHILS # (AUTO) 6.4 X 10^3 (1.8-7.8); NEUTROPHILS % (AUTO) 61 % (42-75); PLATELET COUNT 372 10^3/uL (130-400); RED BLOOD COUNT 4.19 10^6/uL (4.35-5.85); RED CELL DISTRIBUTION WIDTH 14.3 % (10.0-14.5); WHITE BLOOD COUNT 10.5 10^3/uL (4.3-11.0)
[2017-10-10 22:12] LABS: ALANINE AMINOTRANSFERASE 17 U/L (0-55); ALBUMIN 3.8 GM/DL (3.2-4.5); ANION GAP 9 MMOL/L (5-14); ASPARTATE AMINO TRANSFERASE 10 U/L (5-34); BILIRUBIN,TOTAL 0.2 MG/DL (0.1-1.0); BLOOD UREA NITROGEN 11 MG/DL (7-18); BUN/CREATININE RATIO 16; CALCIUM 9.9 MG/DL (8.5-10.1); CARBON DIOXIDE 24 MMOL/L (21-32); CHLORIDE 105 MMOL/L (98-107); CREATININE SERUM 0.69 MG/DL (0.60-1.30); GFR ESTIMATED > 60; GLUCOSE 103 MG/DL (70-105); POTASSIUM 3.9 MMOL/L (3.6-5.0); SODIUM 138 MMOL/L (135-145); TOTAL PROTEIN 6.8 GM/DL (6.4-8.2)
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
[2017-10-10 22:30] VITALS: BP 165/95
== END 2017-10-10 22:30 | disposition home or self-care (01) ==
LOC: EDUNIT# 18:28 → ER 18:30
DX: R11.2 Nausea with vomiting, unspecified (principal); J45.909 Unspecified asthma, uncomplicated; I10 Essential (primary) hypertension; G40.909 Epilepsy, unspecified, not intractable, without status epilepticus; K21.9 Gastro-esophageal reflux disease without esophagitis; M19.90 Unspecified osteoarthritis, unspecified site; F90.9 Attention-deficit hyperactivity disorder, unspecified type; F43.10 Post-traumatic stress disorder, unspecified; F42.9 Obsessive-compulsive disorder, unspecified; F20.9 Schizophrenia, unspecified; F31.9 Bipolar disorder, unspecified; Z87.19 Personal history of other diseases of the digestive system; Z87.891 Personal history of nicotine dependence; Z98.51 Tubal ligation status
CPT/HCPCS: 36415; 80053; 81000; 84703; 85025; 99283

== ENCOUNTER 2017-10-13 18:32 | Emergency (ER) | payer MEDICARE, MEDICAID ==
[~2017-10-13] VITALS: Ht 160 cm; Wt 127.0 kg
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
[2017-10-13 19:20] LABS: BILIRUBIN,URINE NEGATIVE (NEGATIVE); KETONES,URINE NEGATIVE (NEGATIVE); LEUKOCYTE ESTERASE ,URINE 1+ (NEGATIVE); NITRITE,URINE NEGATIVE (NEGATIVE); PH,URINE 8 (5-9); PROTEIN,URINE NEGATIVE (NEGATIVE); UROBILINOGEN,URINE NORMAL (NORMAL)
[2017-10-13] MEDS ORDERED: NITR100C PO (19:44)
[2017-10-13 19:50] VITALS: BP 166/98
== END 2017-10-13 19:50 | disposition home or self-care (01) ==
LOC: EDUNIT# 18:32 → ER 18:33
DX: G40.909 Epilepsy, unspecified, not intractable, without status epilepticus (principal); N39.0 Urinary tract infection, site not specified; J45.909 Unspecified asthma, uncomplicated; I10 Essential (primary) hypertension; K21.9 Gastro-esophageal reflux disease without esophagitis; M19.90 Unspecified osteoarthritis, unspecified site; F90.9 Attention-deficit hyperactivity disorder, unspecified type; F31.9 Bipolar disorder, unspecified; F43.10 Post-traumatic stress disorder, unspecified; F20.9 Schizophrenia, unspecified; F42.9 Obsessive-compulsive disorder, unspecified; F17.210 Nicotine dependence, cigarettes, uncomplicated; Z87.448 Personal history of other diseases of urinary system; Z87.19 Personal history of other diseases of the digestive system; Z98.51 Tubal ligation status
CPT/HCPCS: 81000; 84703; 87088; 99283

== ENCOUNTER 2017-10-19 02:02 | Emergency (ER) | payer MEDICARE, MEDICAID ==
[~2017-10-19] VITALS: Ht 160 cm; Wt 122.5 kg
[~2017-10-19 02:02] MED LIST changes: +NITR100C PO
[2017-10-19] MEDS ORDERED: FAMOTIDINE 20 MG (PEPCID) TABLET PO STA (03:08)
[2017-10-19 03:14] LABS: BASOPHILS % (AUTO) 0 % (0-10); EOSINOPHILS # (AUTO) 0.2 10^3/uL (0.0-0.3); EOSINOPHILS % (AUTO) 3 % (0-10); LYMPHOCYTES # (AUTO) 2.8 X 10^3 (1.0-4.0); LYMPHOCYTES % (AUTO) 32 % (12-44); MEAN CORPUSCULAR HEMOGLOBIN 27 PG (25-34); MEAN CORPUSCULAR HGB CONC 33 G/DL (32-36); MEAN CORPUSCULAR VOLUME 82 FL (80-99); MEAN PLATELET VOLUME 10.3 FL (7.4-10.4); MONOCYTES # (AUTO) 0.7 X 10^3 (0.0-1.0); MONOCYTES % (AUTO) 8 % (0-12); NEUTROPHILS % (AUTO) 57 % (42-75); PLATELET COUNT 386 10^3/uL (130-400); RED BLOOD COUNT 4.42 10^6/uL (4.35-5.85); RED CELL DISTRIBUTION WIDTH 14.1 % (10.0-14.5); WHITE BLOOD COUNT 8.8 10^3/uL (4.3-11.0)
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
[2017-10-19] MEDS ORDERED: LIDOCAINE 2% VISCOUS 15 ML UDC PO ONE (03:15)
[2017-10-19] MEDS ORDERED: ANTACID SUSP 30 ML UDC (MYLANTA) PO ONE (03:15)
[2017-10-19 03:28] LABS: ALANINE AMINOTRANSFERASE 14 U/L (0-55); ALBUMIN 3.8 GM/DL (3.2-4.5); ANION GAP 10 MMOL/L (5-14); ASPARTATE AMINO TRANSFERASE 9 U/L (5-34); BILIRUBIN,TOTAL 0.2 MG/DL (0.1-1.0); BLOOD UREA NITROGEN 14 MG/DL (7-18); BUN/CREATININE RATIO 18; CALCIUM 9.1 MG/DL (8.5-10.1); CARBON DIOXIDE 20 MMOL/L (21-32); CHLORIDE 106 MMOL/L (98-107); CREATININE SERUM 0.78 MG/DL (0.60-1.30); GFR ESTIMATED > 60; GLUCOSE 148 MG/DL (70-105); POTASSIUM 3.5 MMOL/L (3.6-5.0); SODIUM 136 MMOL/L (135-145); TOTAL PROTEIN 6.8 GM/DL (6.4-8.2)
[2017-10-19 04:03] VITALS: BP 134/78
--- NOTE | 2017-10-19 06:11 | Diagnostic Imaging Report ---
INDICATION: Epigastric pain starting prior evening after eating dinner. TECHNIQUE: Two view chest 3:51 AM CORRELATION STUDY: 11/29/2013 FINDINGS: Given depth of inspiration, heart size, mainstem, and vasculature within normal limits. The lungs are clear with no consolidating infiltrate. There is no significant pleural effusion or pneumothorax. Mild multilevel degenerative changes thoracic spine. IMPRESSION: 1. No radiographic evidence for acute abnormality of the chest. Dictated by: Dictated on workstation # [id number]
== END 2017-10-19 04:03 | disposition home or self-care (01) ==
LOC: EDUNIT# 02:02 → ER 02:03
DX: R07.89 Other chest pain (principal); J45.909 Unspecified asthma, uncomplicated; I10 Essential (primary) hypertension; K21.9 Gastro-esophageal reflux disease without esophagitis; M19.90 Unspecified osteoarthritis, unspecified site; F90.9 Attention-deficit hyperactivity disorder, unspecified type; F20.9 Schizophrenia, unspecified; F31.9 Bipolar disorder, unspecified; G40.909 Epilepsy, unspecified, not intractable, without status epilepticus; F17.210 Nicotine dependence, cigarettes, uncomplicated; Z98.51 Tubal ligation status; Z87.448 Personal history of other diseases of urinary system; Z87.19 Personal history of other diseases of the digestive system
CPT/HCPCS: 36415; 71020; 80053; 84484; 85025; 93005

== ENCOUNTER 2017-10-23 01:46 | Emergency (ER) | payer MEDICARE, MEDICAID ==
[~2017-10-23] VITALS: Ht 160 cm; Wt 122.5 kg
[2017-10-23] MEDS ORDERED: NS IV 1000 ML 1,000 ML IV ONE (02:04)
[2017-10-23 02:11] LABS: BASOPHILS % (AUTO) 0 % (0-10); EOSINOPHILS # (AUTO) 0.3 10^3/uL (0.0-0.3); EOSINOPHILS % (AUTO) 4 % (0-10); LYMPHOCYTES # (AUTO) 2.6 X 10^3 (1.0-4.0); LYMPHOCYTES % (AUTO) 33 % (12-44); MEAN CORPUSCULAR HEMOGLOBIN 28 PG (25-34); MEAN CORPUSCULAR HGB CONC 33 G/DL (32-36); MEAN CORPUSCULAR VOLUME 83 FL (80-99); MEAN PLATELET VOLUME 9.9 FL (7.4-10.4); MONOCYTES # (AUTO) 0.7 X 10^3 (0.0-1.0); MONOCYTES % (AUTO) 9 % (0-12); NEUTROPHILS # (AUTO) 4.3 X 10^3 (1.8-7.8); NEUTROPHILS % (AUTO) 54 % (42-75); PLATELET COUNT 388 10^3/uL (130-400); RED BLOOD COUNT 4.27 10^6/uL (4.35-5.85); RED CELL DISTRIBUTION WIDTH 13.9 % (10.0-14.5)
[2017-10-23] MEDS ORDERED: LORazepam INJ 2 MG/ML (ATIVAN) VIAL ONE (02:12)
[2017-10-23 02:31] LABS: ALANINE AMINOTRANSFERASE 18 U/L (0-55); ALBUMIN 3.9 GM/DL (3.2-4.5); ANION GAP 10 MMOL/L (5-14); ASPARTATE AMINO TRANSFERASE 12 U/L (5-34); BILIRUBIN,TOTAL < 0.1 MG/DL (0.1-1.0); BLOOD UREA NITROGEN 18 MG/DL (7-18); BUN/CREATININE RATIO 23; CALCIUM 9.4 MG/DL (8.5-10.1); CARBON DIOXIDE 21 MMOL/L (21-32); CHLORIDE 106 MMOL/L (98-107); CREATINE KINASE 23 U/L (29-168); GFR ESTIMATED > 60; GLUCOSE 105 MG/DL (70-105); POTASSIUM 3.7 MMOL/L (3.6-5.0); SODIUM 137 MMOL/L (135-145)
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
[2017-10-23 02:50] LABS: THYROID STIMULATING HORMONE 3.17 UIU/ML (0.35-4.94)
[2017-10-23 02:58] LABS: BILIRUBIN,URINE NEGATIVE (NEGATIVE); KETONES,URINE NEGATIVE (NEGATIVE); LEUKOCYTE ESTERASE ,URINE 1+ (NEGATIVE); NITRITE,URINE NEGATIVE (NEGATIVE); PH,URINE 6.5 (5-9); PROTEIN,URINE NEGATIVE (NEGATIVE); UROBILINOGEN,URINE NORMAL (NORMAL)
[2017-10-23 03:08] LABS: WBC,URINE RARE /HPF
[2017-10-23] MEDS ORDERED: hydrOXYzine (VISTARIL) 25 MG CAP PO ONE (04:30)
[2017-10-23 04:58] VITALS: BP 104/73
[2017-10-23] MEDS ORDERED: HYDR-700 PO (04:58)
== END 2017-10-23 05:00 | disposition home or self-care (01) ==
LOC: EDUNIT# 01:46 → ER 01:48
DX: G40.909 Epilepsy, unspecified, not intractable, without status epilepticus (principal); J45.909 Unspecified asthma, uncomplicated; K21.9 Gastro-esophageal reflux disease without esophagitis; F90.9 Attention-deficit hyperactivity disorder, unspecified type; F43.10 Post-traumatic stress disorder, unspecified; F20.9 Schizophrenia, unspecified; F31.9 Bipolar disorder, unspecified; I10 Essential (primary) hypertension; F17.210 Nicotine dependence, cigarettes, uncomplicated; Z87.19 Personal history of other diseases of the digestive system; Z87.448 Personal history of other diseases of urinary system; Z98.51 Tubal ligation status
CPT/HCPCS: 36415; 80053; 80306; 81000; 82550; 83735; 84443; 84703; 85025

== ENCOUNTER → 2017-11-05 | Outpatient (CLI) | payer MEDICARE, MEDICAID ==
[~2017-11-05] MED LIST changes: +HYDR-700 PO
== END ==
LOC: CARD 09:09
PROVIDERS: ATTEND Internal Medicine Cardiovascular Disease
DX: R06.02 Shortness of breath (principal); R07.89 Other chest pain; I10 Essential (primary) hypertension; G47.33 Obstructive sleep apnea (adult) (pediatric); E66.8 Other obesity; Z68.43 Body mass index [BMI] 50.0-59.9, adult; Z72.0 Tobacco use
CPT/HCPCS: 93306

== ENCOUNTER 2017-11-07 19:17 | Emergency (ER) | payer MEDICARE, MEDICAID ==
[~2017-11-07] VITALS: Ht 160 cm; Wt 127.0 kg
[2017-11-07] MEDS ORDERED: NS IV 1000 ML 1,000 ML IV ONE (21:32)
[2017-11-07] MEDS ORDERED: ONDANSETRON 4 MG/2 ML (SDV) Z0FRAN IVP ONE (21:45)
[2017-11-07 21:46] LABS: BASOPHILS % (AUTO) 0 % (0-10); EOSINOPHILS % (AUTO) 0 % (0-10); HEMATOCRIT 36 % (35-52); HEMOGLOBIN 12.2 G/DL (11.5-16.0); LYMPHOCYTES # (AUTO) 1.5 X 10^3 (1.0-4.0); LYMPHOCYTES % (AUTO) 21 % (12-44); MEAN CORPUSCULAR HEMOGLOBIN 27 PG (25-34); MEAN CORPUSCULAR HGB CONC 34 G/DL (32-36); MEAN CORPUSCULAR VOLUME 80 FL (80-99); MONOCYTES # (AUTO) 0.7 X 10^3 (0.0-1.0); MONOCYTES % (AUTO) 9 % (0-12); NEUTROPHILS # (AUTO) 4.9 X 10^3 (1.8-7.8); NEUTROPHILS % (AUTO) 69 % (42-75); PLATELET COUNT 291 10^3/uL (130-400); RED BLOOD COUNT 4.46 10^6/uL (4.35-5.85); RED CELL DISTRIBUTION WIDTH 14.1 % (10.0-14.5)
[2017-11-07 22:14] LABS: ALANINE AMINOTRANSFERASE 22 U/L (0-55); ALBUMIN 3.8 GM/DL (3.2-4.5); ALKALINE PHOSPHATASE 104 U/L (40-136); BILIRUBIN,TOTAL 0.3 MG/DL (0.1-1.0); BUN/CREATININE RATIO 9; CALCIUM 8.7 MG/DL (8.5-10.1); CARBON DIOXIDE 18 MMOL/L (21-32); CHLORIDE 106 MMOL/L (98-107); CREATININE SERUM 0.76 MG/DL (0.60-1.30); GFR ESTIMATED > 60; GLUCOSE 104 MG/DL (70-105); POTASSIUM 3.4 MMOL/L (3.6-5.0); SODIUM 135 MMOL/L (135-145); TOTAL PROTEIN 6.9 GM/DL (6.4-8.2)
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
[2017-11-07] MEDS ORDERED: RX-ONDANSETRON 4 MG ODT (ZOFRAN) PPK #4 SL STA (22:26)
[2017-11-07] MEDS ORDERED: KETOROLAC 30 MG/ML VIAL IVP ONE (22:30)
[2017-11-07 22:44] VITALS: BP 130/88
--- NOTE | 2017-11-08 06:09 | Diagnostic Imaging Report ---
EXAMINATION: PA and lateral chest at 1011 PM INDICATION: Shortness of breath The heart size is within normal limits and stable when compared to 10/19/17. The lungs are clear. There is no sign of failure, pneumonia or pleural effusion. The mediastinum is not widened. The osseous structures are intact. IMPRESSION: There is no evidence for active disease. Dictated by: Dictated on workstation # [id number]
== END 2017-11-07 22:45 | disposition home or self-care (01) ==
LOC: EDUNIT# 19:17 → ER 19:18
DX: J06.9 Acute upper respiratory infection, unspecified (principal); R11.2 Nausea with vomiting, unspecified; R19.7 Diarrhea, unspecified; M79.1 Myalgia; R42 Dizziness and giddiness; J45.909 Unspecified asthma, uncomplicated; I10 Essential (primary) hypertension; K21.9 Gastro-esophageal reflux disease without esophagitis; G40.909 Epilepsy, unspecified, not intractable, without status epilepticus; F90.9 Attention-deficit hyperactivity disorder, unspecified type; F31.9 Bipolar disorder, unspecified; F20.9 Schizophrenia, unspecified; F43.10 Post-traumatic stress disorder, unspecified; F17.210 Nicotine dependence, cigarettes, uncomplicated; Z98.51 Tubal ligation status; Z87.448 Personal history of other diseases of urinary system; Z87.19 Personal history of other diseases of the digestive system
CPT/HCPCS: 36415; 71020; 80053; 85025; 87804

== ENCOUNTER 2017-12-11 20:45 | Outpatient (CLI) | payer MEDICARE, MEDICAID | END 2017-12-12 06:30 | disposition home or self-care (01) | LOC: SLEEP 20:45 | PROVIDERS: ATTEND Nurse Practitioner Family | DX: G47.33 Obstructive sleep apnea (adult) (pediatric) (principal); G47.10 Hypersomnia, unspecified | CPT/HCPCS: 95810 ==

== ENCOUNTER 2017-12-28 23:15 | Emergency (ER) | payer MEDICARE, MEDICAID ==
[~2017-12-28] VITALS: Ht 160 cm; Wt 122.5 kg
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
[2017-12-29 00:17] VITALS: BP 131/89
== END 2017-12-29 00:17 | disposition home or self-care (01) ==
LOC: EDUNIT# 23:15 → ER 23:16
DX: H65.92 Unspecified nonsuppurative otitis media, left ear (principal); R42 Dizziness and giddiness; J45.909 Unspecified asthma, uncomplicated; I10 Essential (primary) hypertension; G40.909 Epilepsy, unspecified, not intractable, without status epilepticus; K21.9 Gastro-esophageal reflux disease without esophagitis; F90.9 Attention-deficit hyperactivity disorder, unspecified type; F43.10 Post-traumatic stress disorder, unspecified; F20.9 Schizophrenia, unspecified; F31.9 Bipolar disorder, unspecified; F17.210 Nicotine dependence, cigarettes, uncomplicated; Z98.51 Tubal ligation status; Z87.19 Personal history of other diseases of the digestive system; Z87.448 Personal history of other diseases of urinary system; Z79.82 Long term (current) use of aspirin
CPT/HCPCS: 84703; 99281

== ENCOUNTER 2018-02-21 21:59 | Emergency (ER) | payer MEDICARE, MEDICAID ==
[~2018-02-21] VITALS: Ht 160 cm; Wt 136.1 kg
[~2018-02-21 21:59] MED LIST changes: -CITA20TA7 PO; +CITA20TA9 PO; +TRAZ-190 PO; -TRAZ100T92 PO
[2018-02-21] MEDS ORDERED: METO-351 PO (22:21)
[2018-02-21] MEDS ORDERED: MIRT15TA3 PO (22:21)
[2018-02-21] MEDS ORDERED: KETOROLAC 30 MG/ML VIAL IM ONE (22:45)
[2018-02-21] MEDS ORDERED: SUMAtriptan 6 MG/0.5 ML (IMITREX) INJ SQ ONE (22:45)
[2018-02-21] MEDS ORDERED: ONDANSETRON 4 MG (ZOFRAN) ORAL DISSOLVE TAB PO ONE (22:45)
[2018-02-21] MEDS ORDERED: PROCHLORPERAZINE 10 MG/2ML INJ (COMPAZINE) IM ONE (22:45)
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
[2018-02-21 23:09] VITALS: BP 152/89
== END 2018-02-21 23:11 | disposition home or self-care (01) ==
LOC: EDUNIT# 21:59 → ER 22:00
DX: G43.909 Migraine, unspecified, not intractable, without status migrainosus (principal); J45.909 Unspecified asthma, uncomplicated; I10 Essential (primary) hypertension; G40.909 Epilepsy, unspecified, not intractable, without status epilepticus; K21.9 Gastro-esophageal reflux disease without esophagitis; F90.9 Attention-deficit hyperactivity disorder, unspecified type; F43.10 Post-traumatic stress disorder, unspecified; F31.9 Bipolar disorder, unspecified; F20.9 Schizophrenia, unspecified; F42.9 Obsessive-compulsive disorder, unspecified; F17.210 Nicotine dependence, cigarettes, uncomplicated; Z98.51 Tubal ligation status; Z88.6 Allergy status to analgesic agent; Z87.448 Personal history of other diseases of urinary system; Z87.19 Personal history of other diseases of the digestive system
CPT/HCPCS: 84703; 96372; 99284

== ENCOUNTER 2018-03-16 23:23 | Emergency (ER) | payer MEDICARE, MEDICAID ==
[~2018-03-16] VITALS: Ht 160 cm; Wt 136.1 kg
[~2018-03-16 23:23] MED LIST changes: +METO-351 PO; +MIRT15TA3 PO; -TRAZ-190 PO; +TRAZ100T92 PO
[2018-03-17] MEDS ORDERED: KETOROLAC 30 MG/ML VIAL IM ONE (01:30)
[2018-03-17] MEDS ORDERED: ORPHENADRINE 60 MG/2 ML (NORFLEX) AMP IM ONE (01:30)
[2018-03-17] MEDS ORDERED: CYCL10TA9 PO (02:50)
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
[2018-03-17 02:51] VITALS: BP 140/98
== END 2018-03-17 02:51 | disposition home or self-care (01) ==
LOC: EDUNIT# 23:23 → ER 23:25
DX: S30.0XXA Contusion of lower back and pelvis, initial encounter (principal); J45.909 Unspecified asthma, uncomplicated; I10 Essential (primary) hypertension; G40.909 Epilepsy, unspecified, not intractable, without status epilepticus; F20.9 Schizophrenia, unspecified; F43.10 Post-traumatic stress disorder, unspecified; F31.9 Bipolar disorder, unspecified; F90.9 Attention-deficit hyperactivity disorder, unspecified type; K21.9 Gastro-esophageal reflux disease without esophagitis; F17.210 Nicotine dependence, cigarettes, uncomplicated; Z98.51 Tubal ligation status; Z87.19 Personal history of other diseases of the digestive system; Z87.448 Personal history of other diseases of urinary system; Z88.6 Allergy status to analgesic agent; W01.190A Fall on same level from slipping, tripping and stumbling with subsequent striking against furniture, initial encounter
CPT/HCPCS: 96372; 99284

== ENCOUNTER 2018-05-28 05:29 | Emergency (ER) | payer MEDICARE, MEDICAID ==
[~2018-05-28] VITALS: Ht 160 cm; Wt 136.1 kg
[~2018-05-28 05:29] MED LIST changes: +CYCL10TA9 PO; +TRAZ-190 PO; -TRAZ100T92 PO
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
[2018-05-28] MEDS ORDERED: BENZ-13 PO (05:50)
[2018-05-28] MEDS ORDERED: POLY10DR OP (05:50)
[2018-05-28 05:54] VITALS: BP 151/94
== END 2018-05-28 05:55 | disposition home or self-care (01) ==
LOC: EDUNIT# 05:29 → ER 05:31
DX: J40 Bronchitis, not specified as acute or chronic (principal); B30.9 Viral conjunctivitis, unspecified; I10 Essential (primary) hypertension; G40.909 Epilepsy, unspecified, not intractable, without status epilepticus; F90.9 Attention-deficit hyperactivity disorder, unspecified type; F43.10 Post-traumatic stress disorder, unspecified; F31.9 Bipolar disorder, unspecified; F20.9 Schizophrenia, unspecified; K21.9 Gastro-esophageal reflux disease without esophagitis; F17.210 Nicotine dependence, cigarettes, uncomplicated; Z88.6 Allergy status to analgesic agent; Z87.09 Personal history of other diseases of the respiratory system; Z87.19 Personal history of other diseases of the digestive system; Z98.51 Tubal ligation status; Z87.448 Personal history of other diseases of urinary system
CPT/HCPCS: 99282

== ENCOUNTER 2018-06-27 21:41 | Emergency (ER) | payer MEDICARE, MEDICAID ==
[~2018-06-27] VITALS: Ht 162.6 cm; Wt 136.1 kg
[~2018-06-27 21:41] MED LIST changes: +BENZ-13 PO; +POLY10DR OP
[2018-06-27] MEDS ORDERED: CEFD300C3 PO (22:26)
[2018-06-27] MEDS ORDERED: NF-CIPDEC OT (22:26)
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
[2018-06-27] MEDS ORDERED: LEVOFLOXACIN 500 MG TAB (LEVAQUIN) PO ONE (22:30)
[2018-06-27] MEDS ORDERED: CEFDINIR 300 MG (OMNICEF) CAP PO ONE ×2 (22:30→22:31)
[2018-06-27 22:35] VITALS: BP 149/99
== END 2018-06-27 22:35 | disposition home or self-care (01) ==
LOC: EDUNIT# 21:41 → ER 21:42
DX: H60.92 Unspecified otitis externa, left ear (principal); J45.909 Unspecified asthma, uncomplicated; I10 Essential (primary) hypertension; G40.909 Epilepsy, unspecified, not intractable, without status epilepticus; F17.210 Nicotine dependence, cigarettes, uncomplicated; K21.9 Gastro-esophageal reflux disease without esophagitis; F90.9 Attention-deficit hyperactivity disorder, unspecified type; F41.9 Anxiety disorder, unspecified; F31.9 Bipolar disorder, unspecified; F60.9 Personality disorder, unspecified; F42.9 Obsessive-compulsive disorder, unspecified; F20.0 Paranoid schizophrenia; Z87.19 Personal history of other diseases of the digestive system; Z88.1 Allergy status to other antibiotic agents; Z88.6 Allergy status to analgesic agent; Z98.51 Tubal ligation status

== ENCOUNTER 2018-08-17 23:36 | Emergency (ER) | payer MEDICARE, MEDICAID ==
[~2018-08-17] VITALS: Ht 162.6 cm; Wt 136.1 kg
[~2018-08-17 23:36] MED LIST changes: -BENZ-13 PO; +BENZ100C18 PO; +NF-CIPDEC OT
[2018-08-18] MEDS ORDERED: KETOROLAC 30 MG/ML VIAL IM ONE (00:15)
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
[2018-08-18 02:17] VITALS: BP 158/72
--- NOTE | 2018-08-18 07:43 | Diagnostic Imaging Report ---
INDICATION: Right hip pain. FINDINGS: AP pelvis and right hip. There are no fractures. Articulating surfaces are smooth of the hips. Bony pelvis is intact. No soft tissue calcification. IMPRESSION: Negative AP pelvis and right hip. Dictated by: Dictated on workstation # [id number]
== END 2018-08-18 02:18 | disposition home or self-care (01) ==
LOC: EDUNIT# 23:36 → ER 23:38
DX: M16.0 Bilateral primary osteoarthritis of hip (principal); J45.909 Unspecified asthma, uncomplicated; I10 Essential (primary) hypertension; G40.909 Epilepsy, unspecified, not intractable, without status epilepticus; K21.9 Gastro-esophageal reflux disease without esophagitis; F90.9 Attention-deficit hyperactivity disorder, unspecified type; F41.9 Anxiety disorder, unspecified; F43.10 Post-traumatic stress disorder, unspecified; F20.0 Paranoid schizophrenia; F42.9 Obsessive-compulsive disorder, unspecified; F31.9 Bipolar disorder, unspecified; F17.210 Nicotine dependence, cigarettes, uncomplicated; Z87.448 Personal history of other diseases of urinary system; Z87.19 Personal history of other diseases of the digestive system; Z77.22 Contact with and (suspected) exposure to environmental tobacco smoke (acute) (chronic); Z88.0 Allergy status to penicillin; Z88.6 Allergy status to analgesic agent